=== PATIENT | male | born 1980 | race Caucasian/White ===

== ENCOUNTER 2020-06-10 15:10 | Observation (INO) | payer BC ==
[2020-06-10] MEDS ORDERED: Sodium Chloride 0.9% 10 ML Syringe FLUSH PRN (15:27)
--- NOTE | 2020-06-10 16:24 | PCM.HP.2 ---
H&P History of Present Illness - General Date of Service: 06/10/20 Source of Information: Patient History Limitations: Reports: No Limitations - History of Present Illness Initial Comments - Free Text/Narative: Patient started having RLQ abdominal pain on Sat 06/08. Pain was localized, moderately severe, not associated with nausea or vomiting or fevers/chills. THe pain got progressively worse over time and he decided to present to the walk-in clinic today. At the walk in clinic vitals were stable - BP 123/69, Temp 97.7, Pulse 87, sats 99% on RA. Labs revealed WBC of 22, Hgb 16.3, Plt 218. There was left shift. Gluc 99, Na 139, K 4.1, creat 0.84. CT revealed inflammatory change in thr RLQ suggestive of acute appendicitis and we were consulted. Onset of Symptoms: Reports: Gradual Duration of Symptoms: Reports: Getting Worse Location: Reports: Abdomen Quality: Reports: Sharp Severity: Moderate Improves with: Reports: Immobilization Worsens with: Reports: Movement Associated Symptoms: Reports: No Other Symptoms Right Lower Abdominal Pain Score (Numeric/FACES): 5 - Related Data Allergies/Adverse Reactions: Allergies Allergy/AdvReac Type Severity Reaction Status Date / Time Sulfa (Sulfonamide Allergy Cannot Verified 06/10/20 15:45 Antibiotics) Remember Home Medications: Home Meds Albuterol [Proventil Neb Soln] 1.25 mg NEB ASDIRECTED PRN 06/10/20 [History] Fluticasone Propion/Salmeterol [Advair 250-50 Diskus] 1 puff INH BID 06/10/20 [History] Past Medical History - Past Health History Medical/Surgical History: Denies Medical/Surgical History HEENT History: Reports: Impaired Vision Respiratory History: Reports: Asthma Endocrine/Metabolic History: Reports: Diabetes, Type II - Infectious Disease History Infectious Disease History: Reports: Chicken Pox Other Infectious Disease History: chicken pox as child - Past Surgical History HEENT Surgical History: Reports: Tonsillectomy Musculoskeletal Surgical History: Reports: Other (See Below) Other Musculoskeletal Surgeries/Procedures:: back surgery, foot surgery Social & Family History - Tobacco Use Smoking Status *Q: Former Smoker Used Tobacco, but Quit: Yes Month/Year Tobacco Last Used: 2011 - Caffeine Use Caffeine Use: Reports: Coffee - Recreational Drug Use Recreational Drug Use: No H&P Review of Systems - Review of Systems: Review Of Systems: See Below General: Reports: No Symptoms HEENT: Reports: No Symptoms Pulmonary: Reports: No Symptoms Cardiovascular: Reports: No Symptoms Gastrointestinal: Reports: Abdominal Pain Genitourinary: Reports: No Symptoms Musculoskeletal: Reports: No Symptoms Skin: Reports: No Symptoms Psychiatric: Reports: No Symptoms Neurological: Reports: No Symptoms Hematologic/Lymphatic: Reports: No Symptoms Exam - Exam Exam: See Below - Vital Signs Vital Signs: Last Vital Signs Temp 97.9 F 06/10/20 15:38 Pulse 105 H 06/10/20 15:38 Resp 18 06/10/20 15:38 BP Pulse Ox 96 06/10/20 15:38 Weight: 131.088 kg - Exam General: Alert, Oriented, Cooperative Lungs: Clear to Auscultation, Normal Respiratory Effort Cardiovascular: Regular Rate, Regular Rhythm, Normal S1, Normal S2 GI/Abdominal Exam: Soft, No Organomegaly, No Distention, Tender (RLQ), Other (no rebound tenderness) - Patient Data Lab Results Last 24 hrs: See HPI Sepsis Event Note - Evaluation Sepsis Screening Result: No Definite Risk - Focused Exam Vital Signs: Vital Signs Temp Pulse Resp Pulse Ox 06/10/20 15:38 97.9 F 105 H 18 96 Problem List Initiated/Reviewed/Updated: No Orders Last 24hrs: Active Orders 24 hr Category Date Time Status Peripheral IV Care [RC] . DIRECTED Care 06/10/20 15:27 Active CORONAVIRUS COVID-19 KAYE [MOLEC] Stat Lab 06/10/20 15:27 Ordered Sodium Chloride 0.9% [Saline Flush] Med 06/10/20 15:27 Active 10 ml FLUSH ASDIRECTED PRN Peripheral IV Insertion Adult [OM.PC] Routine Oth 06/10/20 15:27 Ordered Medication Orders Sodium Chloride (Saline Flush) 10 ml FLUSH ASDIRECTED PRN PRN Reason: Keep Vein Open Assessment/Plan Comment:: Patient has likely acute appendicitis. No abscess or peritonitis. I recommended surgical appendectomy but the patient wants to try non-operative management with antibiotics at this time. He prefers not to have surgery. I think this is reasonable. Plan - Admit for IV antibiotics - Zosyn overnight - If WBC trending down tomorrow, we can discharge the patient home with PO antibiotics. - NPO, IVF - OK to ambulate - Antiemetics and pain control
[2020-06-10] MEDS ORDERED: oxyCODONE 5 MG Tab PO PRN (16:36)
[2020-06-10] MEDS ORDERED: HYDROmorphone 0.5 MG/0.5 ML Syringe IVPUSH PRN (16:36)
[2020-06-10] MEDS ORDERED: Ondansetron 4 MG Tab.DIS PO PRN (16:36)
[2020-06-10] MEDS ORDERED: Albuterol 0.083% 2.5 MG/3 ML Neb Soln NEB PRN (16:36)
[2020-06-10] MEDS ORDERED: Acetaminophen 325 MG Tab PO PRN (16:36)
[2020-06-10] MEDS ORDERED: Ondansetron 4 MG/2 ML SDV IV PRN (16:36)
[2020-06-10] MEDS: Piperacillin/Tazobactam 4.5 GM in Sodium Chloride 0.9% 100 ML IV SCH (18:16)
[2020-06-10] MEDS: Lactated Ringers 1,000 ML IV SCH (18:40)
[2020-06-11] MEDS: Piperacillin/Tazobactam 4.5 GM in Sodium Chloride 0.9% 100 ML IV SCH ×2 (00:38→08:18)
[2020-06-11] MEDS: Lactated Ringers 1,000 ML IV SCH ×2 (02:55→10:59)
[2020-06-11] MEDS ORDERED: Enoxaparin 40 MG/0.4 ML Syringe SUBCUT SCH (09:00)
--- NOTE | 2020-06-11 10:52 | PCM.PN ---
- General Info Date of Service: 06/11/20 Admission Dx/Problem (Free Text): Acute appendicitis Functional Status: Reports: Pain Controlled, Ambulating, Urinating - Review of Systems General: Reports: No Symptoms HEENT: Reports: No Symptoms Pulmonary: Reports: No Symptoms Cardiovascular: Reports: No Symptoms Gastrointestinal: Reports: Abdominal Pain Genitourinary: Reports: No Symptoms Musculoskeletal: Reports: No Symptoms Skin: Reports: No Symptoms Neurological: Reports: No Symptoms Psychiatric: Reports: No Symptoms - Patient Data Vitals - Most Recent: Last Vital Signs Temp 97.3 F 06/11/20 08:00 Pulse 76 06/11/20 08:00 Resp 18 06/11/20 08:00 BP 129/68 06/11/20 08:00 Pulse Ox 97 06/11/20 08:00 Weight - Most Recent: 128.82 kg I&O - Last 24 Hours: Intake & Output 06/10/20 06/11/20 06/11/20 22:59 06:59 14:59 Intake Total 1100 Balance 1100 Lab Results Last 24 Hours: Laboratory Results - last 24 hr 06/10/20 06/11/20 06/11/20 Range/Units 16:20 05:53 05:53 WBC 18.74 H (4.23-9.07) K/mm3 RBC 4.92 (4.63-6.08) M/mm3 Hgb 14.5 (13.7-17.5) gm/dl Hct 44.4 (40.1-51.0) % MCV 90.2 (79.0-92.2) fl MCH 29.5 (25.7-32.2) pg MCHC 32.7 (32.2-35.5) g/dl RDW Std Deviation 47.5 H (35.1-43.9) fL Plt Count 193 (163-337) K/mm3 MPV 9.9 (9.4-12.3) fl Neut % (Auto) 79.2 H (34.0-67.9) % Lymph % (Auto) 11.8 L (21.8-53.1) % [place] % (Auto) 8.3 (5.3-12.2) % Eos % (Auto) 0.3 L (0.8-7.0) Baso % (Auto) 0.1 (0.1-1.2) % Neut # (Auto) 14.84 H (1.78-5.38) K/mm3 Lymph # (Auto) 2.21 (1.32-3.57) K/mm3 [place] # (Auto) 1.56 H (0.30-0.82) K/mm3 Eos # (Auto) 0.05 (0.04-0.54) K/mm3 Baso # (Auto) 0.02 (0.01-0.08) K/mm3 Manual Slide Review Normal smear Sodium 136 (136-145) mEq/L Potassium 3.9 (3.5-5.1) mEq/L Chloride 101 (98-107) mEq/L Carbon Dioxide 24 (21-32) mEq/L Anion Gap 14.9 (5-15) BUN 11 (7-18) mg/dL Creatinine 0.8 (0.7-1.3) mg/dL Est Cr Clr Drug Dosing 129.42 mL/min Estimated GFR (MDRD) > 60 (>60) mL/min BUN/Creatinine Ratio 13.8 L (14-18) Glucose 92 (74-106) mg/dL Calcium 9.0 (8.5-10.1) mg/dL SARS-CoV-2 RNA (KAYE) Negative (NEGATIVE) Med Orders - Current: Current Medications Acetaminophen (Tylenol) 650 mg PO Q4H PRN PRN Reason: Pain (Mild 1-3)/fever Albuterol (Proventil Neb Soln) 2.5 mg NEB Q2H PRN PRN Reason: Shortness Of Breath/wheezing Enoxaparin Sodium (Lovenox) 40 mg SUBCUT DAILY [facility] Last Admin: 06/11/20 08:17 Dose: 40 mg Documented by: Hydromorphone HCl (Dilaudid) 0.5 mg IVPUSH Q2H PRN PRN Reason: Pain (severe 7-10) Piperacillin Sod/Tazobactam (Sod 4.5 gm/ Sodium Chloride) 100 mls @ 25 mls/hr IV Q8H [facility] Last Admin: 06/11/20 08:18 Dose: 25 mls/hr Documented by: Ondansetron HCl (Zofran Odt) 4 mg PO Q4H PRN PRN Reason: nausea, able to take PO Ondansetron HCl (Zofran) 4 mg IV Q4H PRN PRN Reason: Nausea/Vomiting Oxycodone HCl (Oxycodone) 5 mg PO Q4H PRN PRN Reason: Pain (moderate 4-6) Sodium Chloride (Saline Flush) 10 ml FLUSH ASDIRECTED PRN PRN Reason: Keep Vein Open Discontinued Medications Lactated Ringer's (Ringers, Lactated) 1,000 mls @ 125 mls/hr IV ASDIRECTED [facility] Last Admin: 06/11/20 02:55 Dose: 125 mls/hr Documented by: - Exam General: Alert, Oriented, Cooperative Lungs: Normal Respiratory Effort Cardiovascular: Regular Rate, Regular Rhythm GI/Abdominal Exam: Soft, Non-Tender, No Distention, No Abnormal Bruit, No Mass Sepsis Event Note - Evaluation Sepsis Screening Result: No Definite Risk - Focused Exam Vital Signs: Vital Signs Temp Pulse Resp BP Pulse Ox 06/11/20 08:00 97.3 F 76 18 129/68 97 06/11/20 00:00 97.5 F 75 14 121/70 97 - Problem List Review Problem List Initiated/Reviewed/Updated: No - My Orders Last 24 Hours: My Active Orders 06/10/20 16:29 Resuscitation Status Routine 06/10/20 16:36 Acetaminophen [TylenoL] 650 mg PO Q4H PRN Albuterol [Proventil Neb Soln] 2.5 mg NEB Q2H PRN HYDROmorphone [Dilaudid] 0.5 mg IVPUSH Q2H PRN Ondansetron [Zofran ODT] 4 mg PO Q4H PRN Ondansetron [Zofran] 4 mg IV Q4H PRN oxyCODONE 5 mg PO Q4H PRN 06/10/20 16:36 Patient Status [ADT] Routine Ambulate [RC] ASDIRECTED Antiembolic Devices [RC] .PRN Cardiac Monitoring [RC] .PRN Intake and Output [RC] January Shower [RC] ASDIRECTED Oxygen Therapy [RC] .PRN Pulse Oximetry [RC] .PRN RT Aerosol Therapy [RC] .PRN Up With Assistance [RC] ASDIRECTED VTE/DVT Education [RC] PER UNIT ROUTINE Vital Signs [RC] Q4HR Antiembolic Hose [OM.PC] Per Unit Routine Sequential Compression Device [OM.PC] Per Unit Routine 06/10/20 16:45 Piperacillin/Tazobactam [Piperacil-Tazobact] 4.5 gm Sodium Chloride 0.9% [Normal Saline] 100 ml IV Q8H 06/11/20 09:00 Enoxaparin [Lovenox] 40 mg SUBCUT DAILY 06/11/20 10:46 Ready for Discharge [RC] PER UNIT ROUTINE 06/11/20 Lunch Regular Diet [DIET] - Assessment Assessment:: Patient has acute appendicitis. He is improving with antibiotics. - Plan Plan:: Patient has likely acute appendicitis. No abscess or peritonitis. I recommended surgical appendectomy but the patient wants to try non-operative management with antibiotics at this time. He prefers not to have surgery. I think this is reasonable. Plan - PO challenge - If tolerates PO, then he will be discharged to home with PO antibiotics x 10 days - I discussed with him warning signs such as fevers, increasing abdominal pain, nausea/vomiting. If he has any of these, he is to return to the ED for further evaluation. Patient verbalized understanding.
--- NOTE | 2020-06-11 10:54 | PCM.DCSUM1 ---
Discharge Summary - Hospital Course Free Text/Narrative:: Patient presented with acute appendicitis. He opted to be treated with antibiotics. He progressed well after IV antibiotics. He will be discharged home with oral antibiotic for 10 days. He will follow up with me in clinic. Diagnosis: Stroke: No - Discharge Data Discharge Date: 06/11/20 Discharge Disposition: Home, Self-Care 01 Condition: Good - Referral to Home Health Primary Care Physician: Ja Martinez Jr, MD - Patient Instructions Diet: Regular Diet as Tolerated Activity: As Tolerated Driving: May Drive Today Showering/Bathing: May Shower Notify Provider of: Fever, Increased Pain, Nausea and/or Vomiting - Discharge Plan *PRESCRIPTION DRUG MONITORING PROGRAM REVIEWED*: Not Applicable *COPY OF PRESCRIPTION DRUG MONITORING REPORT IN PATIENT PANDA: Not Applicable Prescriptions/Med Rec: Ciprofloxacin HCl [Cipro] 500 mg PO BID 10 Days #20 tablet metroNIDAZOLE [Flagyl] 500 mg PO Q8H 10 Days #30 tab Home Medications: Home Meds Albuterol [Proventil Neb Soln] 1.25 mg NEB ASDIRECTED PRN 06/10/20 [History] Fluticasone Propion/Salmeterol [Advair 250-50 Diskus] 1 puff INH BID 06/10/20 [History] Ciprofloxacin HCl [Cipro] 500 mg PO BID 10 Days #20 tablet 06/11/20 [Rx] metroNIDAZOLE [Flagyl] 500 mg PO Q8H 10 Days #30 tab 06/11/20 [Rx] Oxygen Therapy Mode: Room Air Forms: ED Department Discharge Referrals: Ja Martinez Jr, MD [Primary Care Provider] - (FOllow up with Dr. Tidwell in 10 days) - Discharge Summary/Plan Comment DC Time >30 min.: No - General Info Date of Service: 06/11/20 Admission Dx/Problem (Free Text: Acute appendicitis Functional Status: Reports: Pain Controlled, Ambulating, Urinating, New Symptoms - Review of Systems General: Reports: No Symptoms HEENT: Reports: No Symptoms Pulmonary: Reports: No Symptoms Cardiovascular: Reports: No Symptoms Gastrointestinal: Reports: Abdominal Pain Genitourinary: Reports: No Symptoms Musculoskeletal: Reports: No Symptoms Skin: Reports: No Symptoms Neurological: Reports: No Symptoms - Patient Data Vitals - Most Recent: Last Vital Signs Temp 97.3 F 06/11/20 08:00 Pulse 76 06/11/20 08:00 Resp 18 06/11/20 08:00 BP 129/68 06/11/20 08:00 Pulse Ox 97 06/11/20 08:00 Weight - Most Recent: 128.82 kg I&O - Last 24 hours: Intake & Output 06/10/20 06/11/20 06/11/20 22:59 06:59 14:59 Intake Total 1100 Balance 1100 Lab Results - Last 24 hrs: Laboratory Results - last 24 hr 06/10/20 06/11/20 06/11/20 Range/Units 16:20 05:53 05:53 WBC 18.74 H (4.23-9.07) K/mm3 RBC 4.92 (4.63-6.08) M/mm3 Hgb 14.5 (13.7-17.5) gm/dl Hct 44.4 (40.1-51.0) % MCV 90.2 (79.0-92.2) fl MCH 29.5 (25.7-32.2) pg MCHC 32.7 (32.2-35.5) g/dl RDW Std Deviation 47.5 H (35.1-43.9) fL Plt Count 193 (163-337) K/mm3 MPV 9.9 (9.4-12.3) fl Neut % (Auto) 79.2 H (34.0-67.9) % Lymph % (Auto) 11.8 L (21.8-53.1) % [place] % (Auto) 8.3 (5.3-12.2) % Eos % (Auto) 0.3 L (0.8-7.0) Baso % (Auto) 0.1 (0.1-1.2) % Neut # (Auto) 14.84 H (1.78-5.38) K/mm3 Lymph # (Auto) 2.21 (1.32-3.57) K/mm3 [place] # (Auto) 1.56 H (0.30-0.82) K/mm3 Eos # (Auto) 0.05 (0.04-0.54) K/mm3 Baso # (Auto) 0.02 (0.01-0.08) K/mm3 Manual Slide Review Normal smear Sodium 136 (136-145) mEq/L Potassium 3.9 (3.5-5.1) mEq/L Chloride 101 (98-107) mEq/L Carbon Dioxide 24 (21-32) mEq/L Anion Gap 14.9 (5-15) BUN 11 (7-18) mg/dL Creatinine 0.8 (0.7-1.3) mg/dL Est Cr Clr Drug Dosing 129.42 mL/min Estimated GFR (MDRD) > 60 (>60) mL/min BUN/Creatinine Ratio 13.8 L (14-18) Glucose 92 (74-106) mg/dL Calcium 9.0 (8.5-10.1) mg/dL SARS-CoV-2 RNA (KAYE) Negative (NEGATIVE) Med Orders - Current: Current Medications Acetaminophen (Tylenol) 650 mg PO Q4H PRN PRN Reason: Pain (Mild 1-3)/fever Albuterol (Proventil Neb Soln) 2.5 mg NEB Q2H PRN PRN Reason: Shortness Of Breath/wheezing Enoxaparin Sodium (Lovenox) 40 mg SUBCUT DAILY [facility] Last Admin: 06/11/20 08:17 Dose: 40 mg Documented by: Hydromorphone HCl (Dilaudid) 0.5 mg IVPUSH Q2H PRN PRN Reason: Pain (severe 7-10) Piperacillin Sod/Tazobactam (Sod 4.5 gm/ Sodium Chloride) 100 mls @ 25 mls/hr IV Q8H [facility] Last Admin: 06/11/20 08:18 Dose: 25 mls/hr Documented by: Ondansetron HCl (Zofran Odt) 4 mg PO Q4H PRN PRN Reason: nausea, able to take PO Ondansetron HCl (Zofran) 4 mg IV Q4H PRN PRN Reason: Nausea/Vomiting Oxycodone HCl (Oxycodone) 5 mg PO Q4H PRN PRN Reason: Pain (moderate 4-6) Sodium Chloride (Saline Flush) 10 ml FLUSH ASDIRECTED PRN PRN Reason: Keep Vein Open Discontinued Medications Lactated Ringer's (Ringers, Lactated) 1,000 mls @ 125 mls/hr IV ASDIRECTED [facility] Last Admin: 06/11/20 02:55 Dose: 125 mls/hr Documented by: - Exam General: Reports: Alert, Oriented, Cooperative Lungs: Reports: Normal Respiratory Effort Cardiovascular: Reports: Regular Rate, Regular Rhythm GI/Abdominal Exam: Soft, Non-Tender, No Organomegaly, No Distention, No Abnormal Bruit, No Mass
[2020-06-11] MEDS ORDERED: Lactated Ringers 1,000 ML ONE (10:56)
[2020-06-11 14:08] VITALS: BP 130/65; PULSE 78
== END 2020-06-11 12:54 | disposition home or self-care (01) ==
LOC: JD.ED 15:10 → JD.ICU 16:28
PROVIDERS: ADMIT Surgery; ATTEND Surgery
DX: K35.80 Unspecified acute appendicitis (principal); E11.9 Type 2 diabetes mellitus without complications; J45.909 Unspecified asthma, uncomplicated; Z20.828 Contact with and (suspected) exposure to other viral communicable diseases; Z79.51 Long term (current) use of inhaled steroids; Z88.2 Allergy status to sulfonamides; Z87.891 Personal history of nicotine dependence
CPT/HCPCS: 36415; 80048; 85025; 87635; 96361; 96365; 96366; 96372; 99284; G0378; J1650; J2543; J7050; J7120; U0002